=== PATIENT | male | born 1950 | race Caucasian/White ===

== ENCOUNTER 2018-11-24 10:08 | Emergency (ER) | payer MEDICARE, OTHER ==
[2018-11-24] MEDS ORDERED: ASPI1TAB35 PO (10:16)
[2018-11-24] MEDS ORDERED: NS(*) 0.9% 1000 ML BAG 1,000 ML IV ONE (10:24)
[2018-11-24 10:30] LABS: PLATELET COUNT, AUTOMATED 276 K/uL (150-450)
--- NOTE | 2018-11-24 10:30 | ER Report ---
History and Physical Time Seen By MD: 10:26 Hx. of Stated Complaint: STATES HE WAS DIZZY WHILE WORKING IN [place]. WHEN HE WALKED BACK INTO HOME HE PASSED OUT. DOES NOT THINK HE HIT HIS HEAD HPI/ROS CHIEF COMPLAINT: Syncope HISTORY OF PRESENT ILLNESS: Otherwise healthy 60 atrial male was outside working in the heat was stood up quickly and had a syncopal episode said he felt a little bit dizzy and lightheaded earlier in the morning has had his breakfast this is happened to him on numerous occasions but he's never actually passed all the way out however when he is working outside he admits that he is not drinking a ton of water. Patient denies chest pain shortness of breath nausea vomiting diarrhea fever chills no abdominal pain or discomfort noted. Patient states arrival here he still feels a little lightheaded but significantly better was notably diaphoretic at the time of the syncopal episode this was an unwitnessed event but his said she found him and he was back to his baseline mental status no history of seizure disorder REVIEW OF SYSTEMS: Respiratory: No cough, no dyspnea. Cardiovascular: No chest pain, no palpitations. Gastrointestinal: No vomiting, no abdominal pain. Musculoskeletal: No back pain. Remainder of the 14 system rev: Yes Allergies: Coded Allergies: No Known Drug Allergies (Unverified , 11/24/18) Home Meds Reported Medications Aspirin/Acetaminophen/Caffeine (EXCEDRIN EXTRA STRENGTH CAPLET) 1 Each Tablet, 1 EACH PO 11/24/18 Reviewed Nurses Notes: Yes Old Medical Records Reviewed: Yes Constitutional Vital Sign - Last 24 Hours 11/24/18 11/24/18 11/24/18 10:14 10:26 11:00 Temp 97.8 Pulse 87 89 76 90 124 Resp 20 20 B/P (MAP) 134/83 136/74 (94) 127/70 (89) 133/78 (96) 105/79 (88) Pulse Ox 91 90 O2 Delivery Room Air Physical Exam General Appearance: The patient is alert, has no immediate need for airway protection and no current signs of toxicity. [ ] Eyes: Pupils equal and round no injection. Respiratory: Chest is non tender, lungs are clear to auscultation. Cardiac: regular rate and rhythm [ ] Gastrointestinal: Abdomen is soft and non tender, no masses, bowel sounds normal. Musculoskeletal: Neck: Neck is supple and non tender. Extremities have full range of motion and are non tender. Skin: No rashes or lesions. [ ] DIFFERENTIAL DIAGNOSIS: After history and physical exam differential diagnosis was considered for hypertension with orthostatic hypotension dehydration cardiogenic syncope neurocardiogenic syncope intracranial bleed mass or lesion Medical Decision Making Data Points Result Diagram: 11/24/18 1014 11/24/18 1014 Laboratory Hematology Test 11/24/18 10:14 Red Blood Count 5.09 M/uL (4.00-5.60) Mean Corpuscular Volume 87.5 fL (80.0-96.0) Mean Corpuscular Hemoglobin 29.1 pg (26.0-33.0) Mean Corpuscular Hemoglobin Concent 33.2 g/dL (32.0-36.0) Red Cell Distribution Width 13.6 % (11.5-14.5) Mean Platelet Volume 7.4 fL (7.2-11.1) Neutrophils (%) (Auto) 83.0 % (39.4-72.5) Lymphocytes (%) (Auto) 8.7 % (17.6-49.6) Monocytes (%) (Auto) 5.8 % (4.1-12.4) Eosinophils (%) (Auto) 1.9 % (0.4-6.7) Basophils (%) (Auto) 0.6 % (0.3-1.4) Nucleated RBC Relative Count (auto) 0.0 /100WBC Neutrophils # (Auto) 11.2 K/uL (2.0-7.4) Lymphocytes # (Auto) 1.2 K/uL (1.3-3.6) Monocytes # (Auto) 0.8 K/uL (0.3-1.0) Eosinophils # (Auto) 0.3 K/uL (0.0-0.5) Basophils # (Auto) 0.1 K/uL (0.0-0.1) Nucleated RBC Absolute Count (auto) 0.00 K/uL D-Dimer Quantitative (PE/DVT) 0.37 ug/ml (0-0.50) Sodium Level 138 mmol/L (137-145) Potassium Level 4.7 mmol/L (3.5-5.0) Chloride Level 104 mmol/L (98-107) Carbon Dioxide Level 24 mmol/L (22-30) Blood Urea Nitrogen 30 mg/dl (9-21) Creatinine 1.30 mg/dl (0.66-1.25) Glomerular Filtration Rate Calc 54.9 Random Glucose 110 mg/dl (75-110) Calcium Level 9.5 mg/dl (8.4-10.2) Total Bilirubin 0.5 mg/dl (0.2-1.3) Aspartate Amino Transf (AST/SGOT) 23 U/L (0-35) Alanine Aminotransferase (ALT/SGPT) 30 U/L (0-56) Alkaline Phosphatase 57 U/L (0-126) Troponin I < 0.012 ng/ml Total Protein 6.3 g/dl (6.3-8.2) Albumin 3.8 g/dl (3.5-5.0) Chemistry Test 11/24/18 10:14 White Blood Count 13.5 k/uL (4.5-11.0) Red Blood Count 5.09 M/uL (4.00-5.60) Hemoglobin 14.8 g/dL (14.0-18.0) Hematocrit 44.5 % (42.0-52.0) Mean Corpuscular Volume 87.5 fL (80.0-96.0) Mean Corpuscular Hemoglobin 29.1 pg (26.0-33.0) Mean Corpuscular Hemoglobin Concent 33.2 g/dL (32.0-36.0) Red Cell Distribution Width 13.6 % (11.5-14.5) Platelet Count 276 K/uL (150-450) Mean Platelet Volume 7.4 fL (7.2-11.1) Neutrophils (%) (Auto) 83.0 % (39.4-72.5) Lymphocytes (%) (Auto) 8.7 % (17.6-49.6) Monocytes (%) (Auto) 5.8 % (4.1-12.4) Eosinophils (%) (Auto) 1.9 % (0.4-6.7) Basophils (%) (Auto) 0.6 % (0.3-1.4) Nucleated RBC Relative Count (auto) 0.0 /100WBC Neutrophils # (Auto) 11.2 K/uL (2.0-7.4) Lymphocytes # (Auto) 1.2 K/uL (1.3-3.6) Monocytes # (Auto) 0.8 K/uL (0.3-1.0) Eosinophils # (Auto) 0.3 K/uL (0.0-0.5) Basophils # (Auto) 0.1 K/uL (0.0-0.1) Nucleated RBC Absolute Count (auto) 0.00 K/uL D-Dimer Quantitative (PE/DVT) 0.37 ug/ml (0-0.50) Glomerular Filtration Rate Calc 54.9 Calcium Level 9.5 mg/dl (8.4-10.2) Total Bilirubin 0.5 mg/dl (0.2-1.3) Aspartate Amino Transf (AST/SGOT) 23 U/L (0-35) Alanine Aminotransferase (ALT/SGPT) 30 U/L (0-56) Alkaline Phosphatase 57 U/L (0-126) Troponin I < 0.012 ng/ml Total Protein 6.3 g/dl (6.3-8.2) Albumin 3.8 g/dl (3.5-5.0) Coagulation Test 11/24/18 10:14 D-Dimer Quantitative (PE/DVT) 0.37 ug/ml ED Course/Re-evaluation ED Course ED course 60 trauma male who had Dov witnessed syncopal episode patient has baseline labs performed which does demonstrate prerenal azotemia he was orthostatic at 2 L of fluid he feels significantly better cardiac markers enzymes were all negative this is dehydration from his working outside without proper hydration talk to him in great detail about the need to stay hydrated patient is resting comfortable without discharge Decision to Disposition Date: Nov 24, 2018 Decision to Disposition Time: 11:39 Depart Departure Latest Vital Signs Vital Signs Date Time Temp Pulse Resp B/P (MAP) Pulse Ox O2 Delivery O2 Flow Rate FiO2 11/24/18 11:00 76 20 127/70 (89) 90 11/24/18 10:14 97.8 Room Air Impression: Primary Impression: Dehydration Additional Impression: Dehydration after exertion Condition: Improved Disposition: HOME OR SELF-CARE Referrals: DANA GANDARA Patient Instructions: Dehydration (DC) Problem Qualifiers ARIAS HURTADO MD Nov 24, 2018 10:30
--- NOTE | 2018-11-24 10:57 | EKG ---
FACILITY: [facility] PATIENT NAME: VANESSA DALE : [id number] MR: [id number] V: [id number] EXAM DATE: ORDERING PHYSICIAN: ARIAS HURTADO TECHNOLOGIST: Test Reason : Blood Pressure : / mmHG Vent. Rate : 078 BPM Atrial Rate : 078 BPM P-R Int : 156 ms QRS Dur : 080 ms QT Int : 340 ms P-R-T Axes : 041 073 065 degrees QTc Int : 387 ms Sinus rhythm Slight ST elevation inferolaterally No previous ECGs available Confirmed by TIANA DE LA ROSA ([id number]) on 11/24/2018 12:15:38 PM Referred By: Confirmed By:TIANA DE LA ROSA
--- NOTE | 2018-11-24 11:01 | RADIOLOGY IMAGING REPORT ---
FACILITY: [facility] PATIENT NAME: Isaias Augustin : 1950 MR: [id number] V: [id number] EXAM DATE: ORDERING PHYSICIAN: ARIAS HURTADO TECHNOLOGIST: Location: [facility] Patient: Isaias Augustin : 1950 Visit/Account:[id number] Date of Sevice: 11/24/2018 CHEST PA LAT COMPARISON: None. HISTORY: cp FINDINGS: CARDIAC/VASC: No cardiac silhouette abnormality or cardiomegaly. Unremarkable pulmonary vasculatu re. MEDIASTINUM: No visible mass or adenopathy. LUNGS/PLEURA: No pneumothorax. Linear opacities in the right midlung and left lung base laterally, c onsistent with minor atelectasis or scarring. No significant pulmonary parenchymal abnormalities. No effusion or pleural thickening. BONES: Moderate thoracic spine endplate spurring. No acute fracture or subluxation. OTHER:Negative. IMPRESSION: Minor atelectasis or parenchymal scarring bilaterally. No cause for chest pain identified. Report Dictated By: Javier Pinzon at 11/24/2018 10:52 AM Report E-Signed By: Javier Pinzon at 11/24/2018 10:53 AM WSN:[id number]
--- NOTE | 2018-11-24 11:16 | RADIOLOGY IMAGING REPORT ---
FACILITY: [facility] [place] PATIENT NAME: Isaias Augustin : 1950 MR: [id number] V: [id number] EXAM DATE: ORDERING PHYSICIAN: ARIAS HURTADO TECHNOLOGIST: Location: [facility] [place] Patient: Isaias Augustin : 1950 Visit/Account:[id number] Date of Sevice: 11/24/2018 EXAMINATION: CT Head without intravenous contrast HISTORY: Syncope. TECHNIQUE: Axial images were obtained from the skull base to the vertex without intravenous contrast . Sagittal and coronal reformatted images are also submitted. One of the following dose optimization techniques was utilized in the performance of this exam: Autom ated exposure control; adjustment of the mA and/or kV according to the patient's size; or use of an i terative reconstruction technique. Specific details can be referenced in the facility's radiology C T exam operational policy. COMPARISON: None available. FINDINGS: Brain volume: Mild generalized volume loss. Ventricles: Caval septum pellucidum. Otherwise negative. Acute ischemic changes: None. Hemorrhage: None. Masses / edema: None. Landry-white: Negative. White matter: Negative. Vessels: Negative. Extra-axial: Negative. Calvarium / skull base: Negative. Visualized sinuses / orbits: Negative. IMPRESSION: No acute intracranial abnormality. Report Dictated By: Masood Colón MD at 11/24/2018 11:06 AM Report E-Signed By: Masood Colón MD at 11/24/2018 11:09 AM WSN:[id number]
[2018-11-24 11:30] VITALS: BP 131/74
[2018-11-25] MEDS ORDERED: METR-1 PO (09:34)
[2018-11-25] MEDS ORDERED: CIPR-344 PO (09:34)
== END 2018-11-24 12:04 | disposition home or self-care (01) ==
LOC: ER 10:18
DX: E86.0 Dehydration (principal)
CPT/HCPCS: 70450; 71046; 84484; 85025; 85379; 93005; 96360; 99284; J7030; 82040; 82247; 82310; 82374; 82435; 82565; 82947; 84075; 84132; 84155; 84295; 84450; 84460; 84520

== ENCOUNTER 2018-11-25 07:47 | Emergency (ER) | payer MEDICARE, OTHER ==
[~2018-11-25 07:47] MED LIST: ASPI1TAB35 PO
--- NOTE | 2018-11-25 07:58 | ER Report ---
History and Physical Time Seen By MD: 07:55 Hx. of Stated Complaint: DARK RED DIARRHEA STARTED LAST NIGHT HPI/ROS CHIEF COMPLAINT: Dark stool HISTORY OF PRESENT ILLNESS: 60 HO male seen here in the emergency room yesterday for a syncopal episode diagnosed as dehydrated with prerenal azotemia he was out working in the hot sun and not getting enough fluids cardiac markers enzymes EKG reading also is well within normal limits he was discharged home. He said last evening he noticed he had several loose stools which were dark and and when he flushed the toilet he noticed that there was some redness in the pupils became back to the emergency room. Patient has not seen a doctor in many many years has not had a colonoscopy done a preventative medicine. Patient denies abdominal pain nausea vomiting or additional complaints noted REVIEW OF SYSTEMS: Respiratory: No cough, no dyspnea. Cardiovascular: No chest pain, no palpitations. Gastrointestinal: Dark stool Musculoskeletal: No back pain. Remainder of the 14 system rev: Yes Allergies: Coded Allergies: No Known Drug Allergies (Unverified , 11/25/18) Home Meds Reported Medications Aspirin/Acetaminophen/Caffeine (EXCEDRIN EXTRA STRENGTH CAPLET) 1 Each Tablet, 1 EACH PO 11/24/18 Reviewed Nurses Notes: Yes Old Medical Records Reviewed: Yes Constitutional Vital Sign - Last 24 Hours 11/25/18 07:52 Temp 98.1 Pulse 94 Resp 16 B/P (MAP) 153/93 Pulse Ox 93 O2 Delivery Room Air Physical Exam General Appearance: The patient is alert, has no immediate need for airway protection and no current signs of toxicity. [ ] Eyes: Pupils equal and round no injection. Respiratory: Chest is non tender, lungs are clear to auscultation. Cardiac: regular rate and rhythm [ ] Gastrointestinal: Abdomen is soft and non tender, no masses, bowel sounds normal. Musculoskeletal: Neck: Neck is supple and non tender. Extremities have full range of motion and are non tender. Skin: No rashes or lesions. Rectal examination some dried blood around the anal area stool sample collected no fissures masses or lesions noted no external hemorrhoids DIFFERENTIAL DIAGNOSIS: After history and physical exam differential diagnosis was considered for upper GI bleed lower GI bleeding Medical Decision Making Data Points Result Diagram: 11/25/18 0803 11/25/18 0803 Laboratory Hematology Test 11/25/18 07:55 11/25/18 08:03 11/25/18 08:15 Stool Occult Blood (IFOB) Positive (NEGATIVE) Red Blood Count 4.52 M/uL (4.00-5.60) Mean Corpuscular Volume 87.1 fL (80.0-96.0) Mean Corpuscular Hemoglobin 29.1 pg (26.0-33.0) Mean Corpuscular Hemoglobin Concent 33.4 g/dL (32.0-36.0) Red Cell Distribution Width 13.7 % (11.5-14.5) Mean Platelet Volume 7.5 fL (7.2-11.1) Neutrophils (%) (Auto) 88.6 % (39.4-72.5) Lymphocytes (%) (Auto) 4.8 % (17.6-49.6) Monocytes (%) (Auto) 5.3 % (4.1-12.4) Eosinophils (%) (Auto) 0.9 % (0.4-6.7) Basophils (%) (Auto) 0.4 % (0.3-1.4) Nucleated RBC Relative Count (auto) 0.0 /100WBC Neutrophils # (Auto) 10.4 K/uL (2.0-7.4) Lymphocytes # (Auto) 0.6 K/uL (1.3-3.6) Monocytes # (Auto) 0.6 K/uL (0.3-1.0) Eosinophils # (Auto) 0.1 K/uL (0.0-0.5) Basophils # (Auto) 0.0 K/uL (0.0-0.1) Nucleated RBC Absolute Count (auto) 0.00 K/uL Prothrombin Time 13.1 seconds (12.0-14.4) Prothromb Time International Ratio 0.99 Activated Partial Thromboplast Time 28 seconds (23-35) Sodium Level 135 mmol/L (137-145) Potassium Level 4.0 mmol/L (3.5-5.0) Chloride Level 104 mmol/L (98-107) Carbon Dioxide Level 24 mmol/L (22-30) Blood Urea Nitrogen 31 mg/dl (9-21) Creatinine 1.20 mg/dl (0.66-1.25) Glomerular Filtration Rate Calc > 60.0 Random Glucose 105 mg/dl (75-110) Calcium Level 8.9 mg/dl (8.4-10.2) Total Bilirubin 0.2 mg/dl (0.2-1.3) Aspartate Amino Transf (AST/SGOT) 21 U/L (0-35) Alanine Aminotransferase (ALT/SGPT) 30 U/L (0-56) Alkaline Phosphatase 52 U/L (0-126) Total Protein 6.3 g/dl (6.3-8.2) Albumin 3.8 g/dl (3.5-5.0) Lipase 213 U/L (23-300) Serum Alcohol < 10 mg/dl Urine Color Straw Urine Clarity Clear Urine pH 5.0 pH (4.8-9.5) Urine Specific [place] 1.009 Urine Protein Negative mg/dL (NEGATIVE) Urine Glucose (UA) 50 mg/dL (NEGATIVE) Urine Ketones Negative mg/dL (NEGATIVE) Urine Blood Moderate (NEGATIVE) Urine Nitrite Negative (NEGATIVE) Urine Bilirubin Negative (NEGATIVE) Urine Urobilinogen Negative mg/dL (0.2-1.9) Urine Leukocyte Esterase Negative (NEGATIVE) Urine RBC 6 /HPF (0-2/HPF) Urine WBC <1 /HPF (0-5/HPF) Urine Squamous Epithelial Cells Few /LPF (</=FEW) Urine Bacteria Negative /HPF (NONE-FEW) Urine Mucus None /HPF (NONE-FEW) Chemistry Test 11/25/18 07:55 11/25/18 08:03 11/25/18 08:15 Stool Occult Blood (IFOB) Positive (NEGATIVE) White Blood Count 11.7 k/uL (4.5-11.0) Red Blood Count 4.52 M/uL (4.00-5.60) Hemoglobin 13.1 g/dL (14.0-18.0) Hematocrit 39.3 % (42.0-52.0) Mean Corpuscular Volume 87.1 fL (80.0-96.0) Mean Corpuscular Hemoglobin 29.1 pg (26.0-33.0) Mean Corpuscular Hemoglobin Concent 33.4 g/dL (32.0-36.0) Red Cell Distribution Width 13.7 % (11.5-14.5) Platelet Count 244 K/uL (150-450) Mean Platelet Volume 7.5 fL (7.2-11.1) Neutrophils (%) (Auto) 88.6 % (39.4-72.5) Lymphocytes (%) (Auto) 4.8 % (17.6-49.6) Monocytes (%) (Auto) 5.3 % (4.1-12.4) Eosinophils (%) (Auto) 0.9 % (0.4-6.7) Basophils (%) (Auto) 0.4 % (0.3-1.4) Nucleated RBC Relative Count (auto) 0.0 /100WBC Neutrophils # (Auto) 10.4 K/uL (2.0-7.4) Lymphocytes # (Auto) 0.6 K/uL (1.3-3.6) Monocytes # (Auto) 0.6 K/uL (0.3-1.0) Eosinophils # (Auto) 0.1 K/uL (0.0-0.5) Basophils # (Auto) 0.0 K/uL (0.0-0.1) Nucleated RBC Absolute Count (auto) 0.00 K/uL Prothrombin Time 13.1 seconds (12.0-14.4) Prothromb Time International Ratio 0.99 Activated Partial Thromboplast Time 28 seconds (23-35) Glomerular Filtration Rate Calc > 60.0 Calcium Level 8.9 mg/dl (8.4-10.2) Total Bilirubin 0.2 mg/dl (0.2-1.3) Aspartate Amino Transf (AST/SGOT) 21 U/L (0-35) Alanine Aminotransferase (ALT/SGPT) 30 U/L (0-56) Alkaline Phosphatase 52 U/L (0-126) Total Protein 6.3 g/dl (6.3-8.2) Albumin 3.8 g/dl (3.5-5.0) Lipase 213 U/L (23-300) Serum Alcohol < 10 mg/dl Urine Color Straw Urine Clarity Clear Urine pH 5.0 pH (4.8-9.5) Urine Specific [place] 1.009 Urine Protein Negative mg/dL (NEGATIVE) Urine Glucose (UA) 50 mg/dL (NEGATIVE) Urine Ketones Negative mg/dL (NEGATIVE) Urine Blood Moderate (NEGATIVE) Urine Nitrite Negative (NEGATIVE) Urine Bilirubin Negative (NEGATIVE) Urine Urobilinogen Negative mg/dL (0.2-1.9) Urine Leukocyte Esterase Negative (NEGATIVE) Urine RBC 6 /HPF (0-2/HPF) Urine WBC <1 /HPF (0-5/HPF) Urine Squamous Epithelial Cells Few /LPF (</=FEW) Urine Bacteria Negative /HPF (NONE-FEW) Urine Mucus None /HPF (NONE-FEW) Coagulation Test 11/25/18 08:03 Prothrombin Time 13.1 seconds Prothromb Time International Ratio 0.99 Activated Partial Thromboplast Time 28 seconds Toxicology Test 11/25/18 08:03 Serum Alcohol < 10 mg/dl Urinalysis Test 11/25/18 08:15 Urine Color Straw Urine Clarity Clear Urine pH 5.0 pH (4.8-9.5) Urine Specific [place] 1.009 Urine Protein Negative mg/dL (NEGATIVE) Urine Glucose (UA) 50 mg/dL (NEGATIVE) Urine Ketones Negative mg/dL (NEGATIVE) Urine Blood Moderate (NEGATIVE) Urine Nitrite Negative (NEGATIVE) Urine Bilirubin Negative (NEGATIVE) Urine Urobilinogen Negative mg/dL (0.2-1.9) Urine Leukocyte Esterase Negative (NEGATIVE) Urine RBC 6 /HPF (0-2/HPF) Urine WBC <1 /HPF (0-5/HPF) Urine Squamous Epithelial Cells Few /LPF (</=FEW) Urine Bacteria Negative /HPF (NONE-FEW) Urine Mucus None /HPF (NONE-FEW) ED Course/Re-evaluation ED Course ED course 68-year-old male comes emergency Department today seen yesterday for a syncopal episode diagnosed with dehydration and prerenal azotemia from the heat given today saying that yesterday he had some loose stool was some blood in the bowl not bright red darkened blood he was Hemoccult-positive on arrival here CT does show inflammatory infectious colitis of the descending colon recommending f ollow-up after antibiotics with Gen. surgery for colonoscopy hemoglobin has dropped 1.5 hemoglobin otherwise unremarkable baseline vitals were stable throughout his stay we'll start him on by mouth antibiotics and general surgery consult Decision to Disposition Date: Nov 25, 2018 Decision to Disposition Time: 09:29 Depart Departure Latest Vital Signs Vital Signs Date Time Temp Pulse Resp B/P (MAP) Pulse Ox O2 Delivery O2 Flow Rate FiO2 11/25/18 07:52 98.1 94 16 153/93 93 Room Air Impression: Primary Impression: Colitis Additional Impression: GI bleed Condition: Improved Disposition: HOME OR SELF-CARE Referrals: KENDRICK CARLTON MD 5 Days New Scripts Metronidazole (FLAGYL) 500 Mg Tablet 500 MG PO BID for 7 Days, #14 TAB Prov: ARIAS HURTADO MD 11/25/18 Ciprofloxacin Hcl 500 Mg Tab (CIPRO 500 MG TAB) 500 Mg Tablet 500 MG PO BID, #20 0 Refills Prov: ARIAS HURTADO MD 11/25/18 Patient Instructions: Infectious Colitis (ED) Problem Qualifiers ARIAS HURTADO MD Nov 25, 2018 07:58
[2018-11-25 08:23] LABS: PLATELET COUNT, AUTOMATED 244 K/uL (150-450)
[2018-11-25] MEDS ORDERED: IOPAMIDOL 76% 100 ML INFUS BTL 100 ML ONE (08:46)
[2018-11-25 09:02] LABS: INR 0.99
--- NOTE | 2018-11-25 09:28 | RADIOLOGY IMAGING REPORT ---
FACILITY: [facility] [place] PATIENT NAME: Isaias Augustin : 1950 MR: [id number] V: [id number] EXAM DATE: ORDERING PHYSICIAN: ARIAS HURTADO TECHNOLOGIST: Location: [facility] [place] Patient: Isaias Augustin : 1950 Visit/Account:[id number] Date of Sevice: 11/25/2018 CT ABDOMEN PELVIS W/ CON HISTORY: Rectal bleeding for one day. TECHNIQUE: CT abdomen and pelvis 75 cc of Isovue 370 IV. One of the following dose optimization leslye hniques was utilized in the performance of this exam: automated exposure control; adjustment of the m A and/or kV according to the patient's size; or use of an iterative reconstruction technique. Specif ic details can be referenced in the facility's radiology CT exam operational policy. COMPARISON: None. FINDINGS: Liver/gallbladder: Liver demonstrates normal enhancement. The gallbladder is not visualized. Spleen: There is a 20 Hounsfield unit low-attenuation lesion medial aspect of the spleen, 1.5 cm. Th is is likely a benign cyst. Remaining portions of liver are normal. Adrenals: Normal. Pancreas: Normal enhancement without evidence of mass. Kidneys/: The right and left kidney demonstrate normal enhancement without evidence of hydronephro sis or mass. Both ureters are normal. Pelvis: Urinary bladder is normal. GI: There is moderate mucosal thickening of the ascending and transverse colon. The descending colon is normal. There is no pericolonic fat stranding, and no evidence of ascites. There is no focal mass or stricture in the colon. The small bowel and stomach are normal. Vessels/spaces/nodes: Negative. Bones/soft tissues: There are no lytic or blastic bone lesions. Soft tissues are normal. Visualized lung bases: Clear. IMPRESSION: 1. Abnormal mucosal thickening of the ascending and transverse colon. The descending colon is normal . Although there is no pericolic fat stranding or inflammation, this is suggestive of early infectiou s colitis. Crohn's disease and ulcerative colitis are in the differential diagnosis, however are felt to be less likely. 2. No evidence of focal colonic mass or rectal mass. This was called by Dr. Robison to ARIAS HURTADO on 11/25/2018 9:09 AM Report Dictated By: Tito Robison at 11/25/2018 9:09 AM Report E-Signed By: Tito Robison at 11/25/2018 9:23 AM WSN:[id number]
[2018-11-25 09:30] VITALS: BP 139/83
[2018-11-25] MEDS ORDERED: METR-1 PO (09:34)
[2018-11-25] MEDS ORDERED: CIPR-344 PO (09:34)
== END 2018-11-25 09:52 | disposition home or self-care (01) ==
LOC: ER 07:51
DX: K52.9 Noninfective gastroenteritis and colitis, unspecified (principal); K21.9 Gastro-esophageal reflux disease without esophagitis
CPT/HCPCS: 74177; 81001; 82274; 83690; 85025; 85610; 85730; 99283; G0480; Q9967; 80320; 82040; 82247; 82310; 82374; 82435; 82565; 82947; 84075; 84132; 84155; 84295; 84450; 84460; 84520

== ENCOUNTER → 2018-12-02 | Outpatient (REF) | payer MEDICARE, OTHER ==
[~2018-12-02] MED LIST changes: +CIPR-344 PO; +METR-1 PO
[2018-12-02 12:59] LABS: PLATELET COUNT, AUTOMATED 328 K/uL (150-450)
== END ==
PROVIDERS: ATTEND Nurse Practitioner Family
DX: K92.1 Melena (principal)
CPT/HCPCS: 85025; G0103; 82040; 82247; 82310; 82374; 82435; 82565; 82947; 84075; 84132; 84153; 84155; 84295; 84450; 84460; 84520